=== PATIENT | female | born 1970 | race Caucasian/White ===

== ENCOUNTER 2019-07-13 18:53 | Emergency (ER) | payer MEDICAID, SELFPAY ==
[2019-07-13 18:53] VITALS: BP 121/75; PULSE 9; RESP 18; TEMP 35.9; O2SAT 100
[2019-07-13 18:54] VITALS: BP 121/75; PULSE 94; RESP 18; TEMP 35.9; O2SAT 99; BMI 17.6
--- NOTE | 2019-07-13 19:07 | EKG12_ITS ---
Test Reason : WEAKNESS Blood Pressure : / mmHG Vent. Rate : 093 BPM Atrial Rate : 093 BPM P-R Int : 128 ms QRS Dur : 086 ms QT Int : 362 ms P-R-T Axes : 078 076 072 degrees QTc Int : 450 ms Normal sinus rhythm Normal ECG Confirmed by EDWIN GILL, LISA ([id number]), news assignment editor TORITO YEE ([id number]) on 07/18/2019 10:55:19 AM Referred By: Raj Dubose Confirmed By:DWIGHT PINEDA MD
--- NOTE | 2019-07-13 19:08 | ED.DCSUM_ITS ---
- ER Visit Summary Date of Service: 07/13/19 Chief Complaint: Generalized weakness History of Present Illness: The patient is a 48 F history of cervical cancer with abdominal metastases. She is undergone chemo and radiation states she is in remission. She has bilateral nephrostomy tubes. Most of her care is rendered at [facility]. She states she just feels weak all over. She has been this way for the last several weeks. She was admitted to [facility] in [place] within the last month. She states she has had some nausea and vomiting. She has had some constipation. She still makes some urine most of it comes out of her urostomy tubes. She denies any fever. She denies any chills. She denies any diarrhea. No chest pain or shortness of breath. No abdominal pain. Physical Examination: Middle-aged female who looks very cachectic and thin. Vit al signs are stable and afebrile. Pulse ox 9 9% on room air no hypoxia. HEENT exam no facial droop. Normal speech. Very dry tongue and mucous membranes. Neck nontender. Lungs clear to auscultation bilaterally. Heart regular rhythm rate about 90 no murmur. Chest wall nontender. Very thin with the ribs showing. Abdomen soft. Nontender. No peritoneal signs. Nondistended. Soft. Positive bowel sounds. She is moving all 4 extremities. She has 1+ pitting edema both lower extremities and feet which is equal and symmetrical. Calves are nontender without cords. Neurologically she is awake and alert with no focal motor deficits. Test Results: Test x-ray portable 1 view shows no acute abnormality. Chronic changes. Normal cardiac silhouette mediastinum. No infiltrate. Read by myself. EKG normal sinus rhythm rate of 93 with no acute signs of [place] or ischemia. CBC shows no elevated white count at 21,000 she tells me she has had high white counts before. She does not believe she is on any leukocyte stimulating drugs. Hemoglobin is 9.7 we have no old labs available for comparison. Chemistry sodium 131. Gap 13. Her BUN is 49 creatinine 3.37 insistent with renal insufficiency and most likely clinically she is dehydrated. Liver enzymes are elevated. Blood cultures have been ordered and are pending. UA is pending. Emergency Department Course and Treatment: Middle-aged female with cervical cancer metastases. Looks dehydrated. She was treated with IV fluids. Infectious work-up will be done. Also screening labs. Treatment Plan: Repeat exam at 8:32 PM patient is resting comfortably. She is receiving IV fluids. She will be admitted for further evaluation and work-up. She is really too weak to stand or walk. I spoke with our hospitalist who felt the patient was best served going back up to since she had recently been admitted there and they knew her extensive past medical history. I spoke to [facility] transfer line and Dr. Jillian Dickey a PHYSICAL GEOGRAPHER oncologist who is cared for this patient before. She will accept her in transfer. Disposition: Admission Impression: Generalized weakness Acute dehydration Unable to ambulate due to weakness Leukocytosis uncertain etiology. Anemia of chronic disease Hyponatremia Renal insufficiency History of cervical cancer with metastases. This note was generated with VPEP dictation software. It may contain incorrect words, spelling, and punctuation that were not noted in review of the chart prior to signing ED Disposition - Plan for ED Patient:
--- NOTE | 2019-07-13 19:12 | ED.RN ---
1L BAG OF NS INFUSING. BAG FROM SQUAD, SO NOT SCANNED.
[2019-07-13 19:21] LABS: Absolute Neutrophil Count 18.9 X10^3/uL (2.0-7.7); Basophil# 0.02 X10^3/uL; Basophil% 0.1 % (0-1); Eosinophil# 0.01 X10^3/uL; Hematocrit 30.2 % (37-47); Hemoglobin 9.7 g/dL (12.0-15.0); Lymphocyte % 2.8 % (19-41); Mean Corp Hgb Conc 32.1 g/dL (32-36); Mean Corpuscular Hgb 34.6 pg (27.0-32.0); Mean Corpuscular Volume 107.9 fL (81-99); Mean Platelet Vol. 9.7 fl (6.2-12.0); Monocyte# 0.64 X10^3/uL; NRBC Flagged by Analyzer 0 % (0-5); Neutrophil # 18.92 X10^3/uL (2.7-7.7); Neutrophil % 89.2 % (47-70); POSITIVE DIFFERENTIAL YES; POSITIVE MORPHOLOGY YES; Platelet Count 339 K/mm3 (150-450); RBC Distribution Width CV 17.7 % (11.6-14.6); RBC Distribution Width SD 70.5 fl (35.1-43.9); White Blood Count 21.2 K/mm3 (4.4-11.0)
[2019-07-13 19:26] LABS: Differential Indicated SCAN CRITERIA MET
[2019-07-13 19:33] LABS: AST(SGOT) 58 U/L (15-37); Alanine Aminotransfer ALT/SGPT 65 U/L (13-56); Albumin, Serum 1.5 g/dL (3.2-5.0); Alkaline Phosphatase 259 U/L (45-117); Anion Gap 13 (5-15); BUN 49 mg/dL (7-18); BUN/Creat Ratio 14.5 RATIO (10-20); Bilirubin, Direct 0.15 mg/dL (0.00-0.30); Calcium,Total 7.4 mg/dL (8.5-10.1); Chloride 98 mmol/L (98-107); Creatinine, Serum 3.37 mg/dL (0.55-1.02); EST Glomerular Filtration Rate 15 mL/min (>60); Est Glom Filt Rate - Afr Amer 19 mL/min (>60); Globulin 3.7 g/dL (2.2-4.2); Glucose 55 mg/dL (74-106); Potassium 4.8 mmol/L (3.5-5.1); Protein, Total 5.2 g/dL (6.4-8.2); Sodium Level 131 mmol/L (136-145)
[2019-07-13 19:49] LABS: Differential Comment SCANNED
--- NOTE | 2019-07-13 19:58 | RAD_ITS ---
STUDY: X-RAY CHEST REASON FOR EXAM: Female, 48 years old. WEAKNESS, ALTERED LOC, CERVICAL CA, CHRONIC SMOKERS COUGH TECHNIQUE: Single AP portable view of the chest. COMPARISON: None. FINDINGS: There is hyperinflation of the lungs consistent with chronic obstructive lung disease (COPD). No infiltrates. No effusions. There is no demonstrated pleural abnormality. Normal size heart. Normal mediastinum and karolina. Normal visualized pulmonary arteries. Normal visualized aortic arch and descending thoracic aorta. Normal visualized thoracic spine. Normal visualized ribs, clavicles, and shoulders. There is no demonstrated abnormality of the visualized soft tissue structures of the upper abdomen. RAD/Chest 1 View (Portable) IMPRESSION: There are findings consistent with COPD. There is no evidence of acute chest disease. Electronically Signed: Mason Vela MD at 20:12 EDT , Service support ,
--- NOTE | 2019-07-13 21:10 | HP.PCM_ITS ---
Problem List (1) Generalized weakness Status: Acute History of Present Illness Date of Admission: 07/13/19 Chief Complaint: weakness The patient is a 48 year old F with a significant history of metastatic cervical cancer status post bilateral nephrostomy tube who presents at the emergency department with 2 weeks of generalized weakness. Per patient he has been very replaced and he cannot move. Patient reported that 2 weeks ago he was admitted at the [facility] she was treated for kidney infection. Associated with her symptoms is nausea and vomiting. At emergency department his BUN was found to be 49. His creatinine was 3.37. His white count was elevated at 21.2. Patient report that her vomitus is bile looking. He reported that he was supposed to have some gallbladder study at at [place]. However because of the COVID-3 pandemic the study was cancelled. Past Medical History Medical History: Medical History (Last Reviewed 07/13/19 @ 23:[address] Raj Dubose MD) Cervical cancer C53.9 Home Medications: Ambulatory Orders Medication Instructions Recorded Acetaminophen [Tylenol Extra 1,000 mg PO Q6H PRN PRN 07/13/19 Strength] Nystatin 500,000U/5ML [Mycostatin] 4 ml PO 4X/DAY 07/13/19 Omeprazole 20 mg PO DAILY 07/13/19 Ondansetron HCl [Zofran] 4 mg PO Q6H PRN PRN 07/13/19 Oxycodone HCl 10 mg PO Q4H PRN PRN 07/13/19 Tizanidine HCl [Zanaflex] 8 mg PO Q4H PRN PRN 07/13/19 Surgical History: - - Bilateral nephrostomy tube Smoking Status: Current every day smoker Tobacco Use: Cigarettes Alcohol: None - *Family History Maternal History Items: Heart Disease Paternal History Items: Diabetes, Heart Disease Review of Systems Constitutional: Reports: Anorexia, Weakness, Weight Change - Patient has lost about 70 pounds in total; 50 pounds within the last year.. Denies: Chills, Fever HEENT: Denies: Head Aches, Sinus Congestion, Sinus Drainage Cardiovascular: Reports: Edema. Denies: Chest Pain, Palpitations Respiratory: Denies: Cough, Shortness of breath at rest, Sputum production Gastrointestinal: Reports: Nausea, Vomiting. Denies: Abdominal Pain Genitourinary: Denies: Dysuria Musculoskeletal: Denies: Joint Pain, Joint Tenderness Skin: Denies: Rash, Wounds Neurological: Denies: Numbness, Tingling, Focal weakness Psychiatric: Denies: Anxiety, Depression, Homicidal Ideations, Suicidal Ideations Hematologic/ Lymphatic: Denies: Easy Bruising, Easy Bleeding VTE Information - Inpt Only VTE Present on Admission: No VTE Mechan Device Prophylaxis: None VTE Pharm Prophylaxis ordered?: No Reason prophylaxis not ordered:: Treatment Not Indicated - Patient to be transferred to outside hospital. Patient Problems: Active and Suspected Problems (Last Reviewed 07/13/19 @ 23:[address] Raj Dubose MD) Generalized weakness (Acute) - Physical Exam Vitals/I&O's: Vital Signs Temp Pulse Resp BP Pulse Ox 96.7 F L 94 18 121/75 H 99 07/13/19 18:54 07/13/19 18:54 07/13/19 18:54 07/13/19 18:54 07/13/19 18:54 Oxygen Delivery Method Room Air Weight: 54 kg Body Mass Index (BMI) 17.6 General: Alert, - - Cachectic HEENT: Atraumatic, PERRLA, EOMI, Normocephalic, - Oral: Dry Mucosa, - - Poor dentition Neck: Supple, Trachea Midline Lungs: Clear to auscultation, Normal air movement, No rhonchi, No wheeze, No rales Cardiovascular: Regular rate, No murmurs Abdomen: Bowel Sounds Present, Soft, Non Tender, - - Bilateral nephrostomy tube with left nephrostomy tube full of urine; and right nephrostomy tube empty. Extremities: Edema - Bilateral lower extremity edema Skin: No rashes, No breakdown Musculoskeletal: No Tenderness to Palpation of Joints or Extremities Neurological: Cranial nerves II-XII grossly intact Psych/Mental Status: Normal Affect, Appropriate Laboratory Results 07/13/19 19:05: WBC 21.2 H, RBC 2.80 L, Hgb 9.7 L, Hct 30.2 L, MCV 107.9 H, MCH 34.6 H, MCHC 32.1, RDW Std Deviation 70.5 H, RDW Coeff of Lesly 17.7 H, Plt Count 339, MPV 9.7, Immature Gran % (Auto) 4.900 H, Neut % (Auto) 89.2 H, Lymph % (Auto) 2.8 L, [place] % (Auto) 3.0, Eos % (Auto) 0.0, Baso % (Auto) 0.1, Absolute Neuts (auto) 18.9 H, Absolute Lymphs (auto) 0.60 L, Nucleated RBC % 0, Differential Comment SCANNED 07/13/19 19:05: Sodium 131 L, Potassium 4.8, Chloride 98, Carbon Dioxide 20.0 L, Anion Gap 13, BUN 49 H, Creatinine 3.37 H, Estim Creat Clear Calc 17.40, Est GFR (MDRD) Af Amer 19 L, Est GFR (MDRD) Non-Af 15 L, BUN/Creatinine Ratio 14.5, Glucose 55 L, Calcium 7.4 L, Total Bilirubin 0.30, Direct Bilirubin 0.15, AST 58 H, ALT 65 H, Alkaline Phosphatase 259 H, Total Protein 5.2 L, Albumin 1.5 L, G lobulin 3.7 Assessment/Plan All Active Problems (Last Reviewed 07/13/19 @ 23:[address] Raj Dubose MD) Generalized weakness (Acute) The patient is a 48 year old F with a significant history of metastatic cervical cancer status post bilateral nephrostomy tube who presents emergency department with 2 weeks of generalized weakness; nausea and vomiting. Generalized weakness, nausea and vomiting/ Malnutrition/Leukocytosis/ Hx of cervical cancer Patient was seen and examined. Discussed with emergency department doctor that patient to be transferred to [facility] since patient is not very forthcoming with information and all previous providers has been at [facility]. Office Visits / Consults: [id number] OP Consult L2
[2019-07-13 21:17] LABS: Mucous, Urine 0 SEEN /hpf (<or=2+)
[2019-07-13 21:21] VITALS: BP 115/93; PULSE 91; RESP 14; TEMP 36.6; O2SAT 98
[2019-07-13 21:27] LABS: Color, Urine Yellow (Yellow); Glucose, Dipstick Normal (Normal); Ketone-Dipstick 5 mg/dl (Negative); Leukocyte Esterase-Dipstick 500 /ul (Negative); Nitrite-Dipstick Negative (Negative); Occult Blood-Urine 250 /ul (Negative); Protein-Dipstick 100 mg/dl (Negative); Urine Bilirubin Dipstick Negative (Negative); Urine Clarity Cloudy (Clear); Urine Urobilinogen Normal (Normal)
[2019-07-13 21:35] LABS: White Blood Cells 50-100 SEEN /hpf (0-5)
[2019-07-13 21:36] LABS: Amorphous Sediment 1+ URATE; Bacteria RARE /hpf (None Seen); Red Blood Cells-Urine 25-50 SEEN /hpf (0-5); Squamous Epithelial Cells - UA 0-5 SEEN /hpf (5-10); Yeast-Urine 2+ /hpf (None Seen)
[2019-07-13 22:53] VITALS: BP 117/68; PULSE 81; RESP 20; O2SAT 97
[2019-07-13] MEDS: Ceftriaxone 1 GM/50 ML BAG IV (23:04)
--- NOTE | 2019-07-13 23:05 | ED.RN ---
ROCEPHIN ORIGINALLY SENT TO FLOOR. RX DID NOT RECEIVE ED NOTIFICATION.. NOW INFUSING.
--- NOTE | 2019-07-14 14:55 | ED.RN ---
I received a call from the pt's inquiring as to her status. I called [facility] and spoke with pt's nurse, Luma. Verified pt was in , was currently sleeping and RN was going to call shortly. RN did verify pt gave verbal permission to share medical information with . I returned call to and updated him. He was appreciative of the time and call.
== END 2019-07-13 23:15 | disposition short-term general hospital (02) ==
LOC: ED 19:29
PROVIDERS: Emergency Provider Emergency Medicine; PCP Family Medicine; Referring Provider Hospitalist
DX: R53.1 Weakness (principal); E86.0 Dehydration; D72.829 Elevated white blood cell count, unspecified; D63.8 Anemia in other chronic diseases classified elsewhere; E87.1 Hypo-osmolality and hyponatremia; N28.9 Disorder of kidney and ureter, unspecified; Z85.41 Personal history of malignant neoplasm of cervix uteri; K59.00 Constipation, unspecified; Z96.0 Presence of urogenital implants; Z79.899 Other long term (current) drug therapy; F17.210 Nicotine dependence, cigarettes, uncomplicated
CPT/HCPCS: 71045; 80048; 80076; 81001; 85025; 87040; 93005; 96365; 99285; J7030; A4216